=== PATIENT | female | born 1995 | race Hispanic/Latino ===

== ENCOUNTER 2018-06-26 17:57 | Emergency (ER) | payer MEDICAID, OTHER ==
[2018-06-26 17:57] VITALS: BMI 38.0
[2018-06-26 18:48] LABS: HCG,QUALITATIVE URINE NEGATIVE (NEGATIVE)
[2018-06-26 18:54] LABS: SQUAMOUS EPITHIAL 3 /hpf (0-5); URINE BILIRUBIN NEGATIVE (NEGATIVE); URINE BLOOD 3+ (NEGATIVE); URINE CLARITY Hazy (Clear); URINE COLOR Red (YELLOW); URINE GLUCOSE (UA) NORMAL (Normal); URINE LEUKOCYTE ESTERASE NEG Leu/uL (Negative); URINE PROTEIN 2+ mg/dL (NEGATIVE); URINE UROBILINOGEN NORMAL mg/dL (0.2-1.0)
--- NOTE | 2018-06-26 19:11 | C.PDOC ---
History Of Present Illness 22 year old female with PMHx of asthma and termination 2 months ago presents to the ED complaining of vaginal bleeding for the past 2 months. She reports vaginal bleeding is worse today with multiple large blood clots and soaking through underwear and pants. She has not seen [facility] since D&C 2 months ago. She denies any syncope, chest pain, SOB, palpitations. Time Seen by Provider: 06/26/18 18:23 Chief Complaint (Nursing): Female Genitourinary History Per: Patient History/Exam Limitations: no limitations Onset/Duration Of Symptoms: Days Current Symptoms Are (Timing): Still Present Associated Symptoms: Other (Vaginal bleeding). denies: Chest Pain Abnormal Vaginal Bleeding: Yes Past Medical History Reviewed: Historical Data, Nursing Documentation, Vital Signs Vital Signs: Last Vital Signs Temp 98.6 F 06/26/18 21:45 Pulse 69 06/26/18 21:45 Resp 18 06/26/18 21:45 BP 106/72 06/26/18 21:45 Pulse Ox 100 06/26/18 22:38 - Medical History PMH: Asthma, Bipolar Disorder, Depression Denies: Diabetes, Hepatitis, HIV, HTN, Chronic Kidney Disease, Seizures, Sexually Transmitted Disease Surgical History: - [facility] Procedures CLOSURE SKIN & SUBCUTANEOUS NEC (06/23/15) GROUP PSYCHOTHERAPY (07/30/17) INDIVIDUAL PSYCHOTHERAPY, SUPPORTIVE (07/30/17) Family History: States: No Known Family Hx - Social History Hx Tobacco Use: Yes Hx Alcohol Use: Yes Hx Substance Use: No - Immunization History Hx Tetanus Toxoid Vaccination: No Hx Influenza Vaccination: No Hx Pneumococcal Vaccination: No Review Of Systems Except As Marked, All Systems Reviewed And Found Negative. Cardiovascular: Negative for: Chest Pain, Palpitations Respiratory: Negative for: Shortness of Breath Genitourinary: Positive for: Vaginal Bleeding Neurological: Negative for: Other (syncope ) Physical Exam - Physical Exam Additional Physical Exam Comments: Constitutional: No acute distress. Head: Normocephalic. Atraumatic. Eyes: PERRL. ENT: Moist mucous membranes. Neck: Supple. Cardiovascular: Regular rate. Radial pulse 2+ bilaterally. Chest: No tenderness. Respiratory: Clear to auscultation bilaterally. GI: Soft. Nontender. Nondistended. Back: No CVA tenderness. Musculoskeletal: No tenderness or swelling of extremities. Skin: No rash. Neurologic: Alert, no focal deficit. ED Course And Treatment - Laboratory Results Result Diagrams: 06/26/18 19:16 06/26/18 19:16 O2 Sat by Pulse Oximetry: 100 (RA) Pulse Ox Interpretation: Normal Medical Decision Making Medical Decision Making: Impression: Vaginal bleeding Plan: - Assess for anemia - Assess for Retain products on consumption on US - Currently no hemodynamic compromise [address] Hess OBGYN, about course of treatment. FINDINGS: Uterus/cervix: The uterus is 9.6 cm. Endometrial stripe thickness is 1.9 cm and appears heterogeneous, slightly vascular No myometrial mass. Right ovary: Right ovary is 3 cm. Right ovary contains small simple physiologic follicles. Normal blood flow. Left ovary: Left ovary is 5.4 cm. This ovary contains a cyst which measures 4.6 cm. Left ovary contains a small simple physiologic follicles. Normal blood flow. Free fluid: No free fluid. IMPRESSION: Thickened vascular endometrium, retained products of conception from recent cannot be excluded. Prominent simple cyst off the left ovary measures 4.6 cm. No evidence of torsion. Beta hcg 3, not consistent with retained products as per Dr. Hess. Advised Methergine 0.2mg TID x 3 days with ibuprofen and f/u with OBGYN which patient states she can do. Instructed to return to ED for worsening pain, fever, symptoms of acute blood loss anemia. Disposition - Disposition Disposition: HOME/ ROUTINE Disposition Time: 20:56 Condition: STABLE Additional Instructions: Follow up with your OBGYN. Prescriptions: Ibuprofen [Motrin] 600 mg PO Q6 #25 tab Methylergonovine Maleate [Methergine] 0.2 mg PO TID #9 tablet Instructions: Forms: [facility] ([place]), Work Excuse - Clinical Impression Clinical Impression: Endometrial thickening on ultrasound - Scribe Statement The provider has reviewed the documentation as recorded by the Tanoibalmaz Wallace All medical record entries made by the Tanoibalmaz were at my direction and personally dictated by me. I have reviewed the chart and agree that the record accurately reflects my personal performance of the history, physical exam, medical decision making, and the department course for this patient. I have also personally directed, reviewed, and agree with the discharge instructions and disposition.
[2018-06-26 19:20] LABS: BASO # 0.1 K/uL (0.0-0.2); BASO % 0.6 % (0.0-2.0); EOS % 0.6 % (0.0-4.0); HEMOGLOBIN 12.9 g/dL (11.0-16.0); LYMPH # 1.6 K/uL (1.0-4.3); MEAN CORPUSCULAR HEMOGLOBIN 30.4 pg (27.0-31.0); MEAN CORPUSCULAR HGB CONC 33.8 g/dL (33.0-37.0); MEAN PLATELET VOLUME 8.7 fL (7.2-11.7); MONO # 0.7 K/uL (0.0-0.8); MONO % 7.4 % (0.0-10.0); NEUT # 6.5 K/uL (1.8-7.0); NEUT % 73.4 % (50.0-75.0); NRBC % 0.1 % (0.0-2.0); RBC 4.23 Mil/uL (3.80-5.20); RED CELL DISTRIBUTION WIDTH 14.3 % (11.5-14.5); WHITE BLOOD COUNT 8.9 K/uL (4.8-10.8)
[2018-06-26 19:34] LABS: ALB/GLOB RATIO 1.5 (1.0-2.1); ALBUMIN 4.3 g/dL (3.5-5.0); ALT/SGPT 17 U/L (9-52); AST/SGOT 15 U/L (14-36); BLOOD UREA NITROGEN 11 mg/dL (7-17); CALCIUM 9.3 mg/dl (8.6-10.4); GFR AFRICAN-AMERICAN > 60; GFR NON-AFRICAN AMERICAN > 60
[2018-06-26] MEDS ORDERED: Morphine 4 MG/ML VIAL ONE (21:41)
[2018-06-26 21:45] VITALS: BP 106/72; PULSE 69; RESP 18; TEMP 98.6
[2018-06-26 22:25] VITALS: O2SAT 100
--- NOTE | 2018-06-27 17:47 | US ---
Date of service: 06/26/2018 PROCEDURE: TRANS ABDOMINAL AND TRANSVAGINAL PELVIC ULTRASOUND HISTORY: , bleeding, assess for retained product - status post termination of some 2 months previously as per patient. COMPARISON: Pelvis ultrasound 05/14/2015. No more recent prior pelvic ultrasonography is available for comparison. TECHNIQUE: Transabdominal and transvaginal pelvic ultrasound was performed with longitudinal and transverse images submitted for interpretation.. FINDINGS: Ultrasonography of the pelvis reveals an anteverted uterus enlarged at 9.5 x 4.9 x 6.0 cm without myometrial or cervical mass grossly evident. The endometrium measures 19.0 mm and is heterogeneous in echotexture with mild hyperemia, potentially reflecting retained products of conception. Clinically correlate further. The left ovary is enlarged to 4.8 x 5.2 x 5.8 cm due to a simple cyst probably reflecting corpus luteum cyst measuring 4.2 x 4.6 x 4.5 cm. Right ovary is unremarkable measuring 3.0 x 2.2 x 2.9 cm. Ensure apparent arterial blood flow was captured bilaterally with no torsion pattern evident. No fluid collection is identified throughout the exam at the peritoneal space. IMPRESSION: A 19.0 endometrium may indicate retained products of conception. Clinically correlate further. The exam is otherwise remarkable only for a 4.6 cm simple cyst enlarging the right ovary. Concordant preliminary report from [facility], 06/26/2018.
== END 2018-06-26 22:32 | disposition home or self-care (01) ==
LOC: C.ER 17:57
DX: R93.8 Abnormal findings on diagnostic imaging of other specified body structures (principal)
CPT/HCPCS: 76830; 76856; 80053; 81001; 84702; 84703; 85025; 86850; 86900; 87086; 96374; 99285; J2270